=== PATIENT | female | born 1965 | race Hispanic/Latino ===

== ENCOUNTER 2021-03-13 14:41 | Emergency (ER) | payer OTHER ==
[2021-03-13 15:15] LABS: Urine Blood 3+ (Negative); Urine Glucose Negative (Negative); Urine Protein Trace (Negative); Urine Specific Gravity 1.025 (1.005-1.030)
[2021-03-13 16:00] LABS: ALT/SGPT 29 U/L (12-78); AST/SGOT 17 U/L (15-37); Albumin 3.5 g/dL (3.4-5.0); Alkaline Phosphatase 55 U/L (45-117); BUN Blood Urea Nitrogen 18 mg/dL (7-18); Bicarbonate 24 mmol/L (21-32); Bilirubin Direct < 0.1 mg/dL (0-0.2); Bilirubin Total 0.4 mg/dL (0.2-1.0); Glucose Level 94 mg/dL (74-106); Lipase 101 U/L (73-393); Protein, Total 6.8 g/dL (6.4-8.2); Sodium Level 146 mmol/L (136-145)
[2021-03-13] MEDS ORDERED: CEFTRIAXONE 1 GM/NS 50 ML 1 GM/50 ML BAG IV SCH (16:00)
[2021-03-13] MEDS ORDERED: KETOROLAC 30 MG/ML INJ ONE (16:08)
[2021-03-13] MEDS ORDERED: ONDANSETRON 4 MG/2 ML VIAL ONE (16:08)
[2021-03-13] MEDS ORDERED: NA CHLORIDE 0.9% 0 ML ONE (16:08)
[2021-03-13] MEDS ORDERED: MORPHINE 4 MG/ML SYR ONE (16:10)
[2021-03-13 16:57] LABS: Absolute Lymphocytes (CBC) 1.6 K/uL (0.7-4.9); Basophils % 0.1 % (0-1.3); Hematocrit 37.4 % (36.0-45.0); Lymphocytes % 22.7 % (15.3-44.8); MPV 9.3 fL (7.6-11.3); RBC Red Blood Cell Count 4.48 M/uL (3.86-4.86)
--- NOTE | 2021-03-13 17:25 | RAD REPORT ---
EXAM DESCRIPTION: CT - Stone Protocol - 03/13/2021 5:11 pm CLINICAL HISTORY: Flank pain. FLANK PAIN COMPARISON: No comparisons TECHNIQUE: Axial images were obtained without oral or IV contrast. Lack of contrast limits solid org an and vascular assessment. The [id number] spans the entirety of the system partially obscuring uppermost abdomen and lung bases. Coronal reformatted images were obtained and reviewed. All CT scans are performed using dose optimization technique as appropriate and may include automated exposure control or mA/KV adjustment according to patient size. FINDINGS: 3 mm nodule is present in the right lower lobe laterally. The lung bases are clear of acut e infiltrate. Imaged portions of the liver and spleen show no suspicious findings on non-contrast imaging. The panc reas and adrenal glands are normal. No pathologic lymphadenopathy in the abdomen or pelvis. 4 mm stone is present proximal right ureter at the level of the UPJ resulting in mild right hydroneph rosis. Additional small punctate stones are present in calices of both kidneys. No bowel obstruction, free air, free fluid or abscess. Normal appendix noted. No significant bony abnormality. IMPRESSION: 4 mm stone proximal right ureter at the level the right UPJ resulting in mild right hydr onephrosis. Smaller punctate stones are present in the calices of both kidneys.
--- NOTE | 2021-03-13 17:32 | EDPHYS ---
Physician Documentation [facility] Name: Sobeida Espinoza Age: 55 yrs Sex: Female : 1965 Arrival Date: 03/13/2021 Time: 14:50 Bed 8 Private MD: DERECK Physician Pipo Vail HPI: 03/13 17:25 This 55 yrs old Female presents to ER via EMS with complaints of chelsie Nausea/Vomiting, Flank Pain. 17:25 The patient presents to the emergency department with nausea, vomiting, that is chelsie continuous, abdominal pain, of the posterior aspect of right lateral abdomen, anterior aspect of right lateral abdomen and right lower quadrant. Onset: The symptoms/episode began/occurred just prior to arrival. Possible causes: kidney stone. 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 - Social history:: Smoking status: Patient denies any tobacco usage or history of. ROS: 17:26 Constitutional: Negative for fever, chills, and weight loss, Eyes: Negative for injury, chelsie pain, redness, and discharge, ENT: Negative for injury, pain, and discharge, Neck: Negative for injury, pain, and swelling, Cardiovascular: Negative for chest pain, palpitations, and edema, Respiratory: Negative for shortness of breath, cough, wheezing, and pleuritic chest pain, : Negative for injury, bleeding, discharge, and swelling, MS/Extremity: Negative for injury and deformity, Skin: Negative for injury, rash, and discoloration, Neuro: Negative for headache, weakness, numbness, tingling, and seizure, Psych: Negative for depression, anxiety, suicide ideation, homicidal ideation, and hallucinations, Allergy/Immunology: Negative for hives, rash, and allergies, Endocrine: Negative for neck swelling, polydipsia, polyuria, polyphagia, and marked weight changes, Hematologic/Lymphatic: Negative for swollen nodes, abnormal bleeding, and unusual bruising. 17:26 Abdomen/GI: Positive for abdominal pain, nausea and vomiting, nausea, vomiting, of the posterior aspect of right lateral abdomen, anterior aspect of right lateral abdomen and right lower quadrant. 17:26 Back: Positive for flank pain, on the right. Exam: 17:27 Constitutional: This is a well developed, well nourished patient who is awake, alert, chelsie and in no acute distress. Head/Face: Normocephalic, atraumatic. Eyes: Pupils equal round and reactive to light, extra-ocular motions intact. Lids and lashes normal. Conjunctiva and sclera are non-icteric and not injected. Cornea within normal limits. Periorbital areas with no swelling, redness, or edema. ENT: Nares patent. No nasal discharge, no septal abnormalities noted. Tympanic membranes are normal and external auditory canals are clear. Oropharynx with no redness, swelling, or masses, exudates, or evidence of obstruction, uvula midline. Mucous membranes moist. Neck: Trachea midline, no thyromegaly or masses palpated, and no cervical lymphadenopathy. Supple, full range of motion without nuchal rigidity, or vertebral point tenderness. No Meningismus. Chest/axilla: Normal chest wall appearance and motion. Nontender with no deformity. No lesions are appreciated. Cardiovascular: Regular rate and rhythm with a normal S1 and S2. No gallops, murmurs, or rubs. Normal PMI, no JVD. No pulse deficits. Respiratory: Lungs have equal breath sounds bilaterally, clear to auscultation and percussion. No rales, rhonchi or wheezes noted. No increased work of breathing, no retractions or nasal flaring. Abdomen/GI: Soft, non-tender, with normal bowel sounds. No distension or tympany. No guarding or rebound. No evidence of tenderness throughout. Back: No spinal tenderness. No costovertebral tenderness. Full range of motion. Skin: Warm, dry with normal turgor. Normal color with no rashes, no lesions, and no evidence of cellulitis. MS/ Extremity: Pulses equal, no cyanosis. Neurovascular intact. Full, normal range of motion. Neuro: Awake and alert, GCS 15, oriented to person, place, time, and situation. Cranial nerves II-XII grossly intact. Motor strength 5/5 in all extremities. Sensory grossly intact. Cerebellar exam normal. Normal gait. Psych: Awake, alert, with orientation to person, place and time. Behavior, mood, and affect are within normal limits. 17:27 Back: pain, that is very mild, of the right mid back, ROM is normal, normal spinal alignment noted, CVA tenderness, is absent, vertebral tenderness, is not appreciated, muscle spasm, is not present. Vital Signs: 14:50 BP 137 / 74; Pulse 66; Resp 18; Temp 98.2; Pulse Ox 99% ; Weight 71.67 kg; Height 5 ft. ll1 2 in. (157.48 cm); Pain 8/10; 16:52 BP 109 / 66; Pulse 62; Resp 15; Pulse Ox 99% on R/A; Pain 0/10; ss 14:50 Body Mass Index 28.90 (71.67 kg, 157.48 cm) ll1 MDM: 15:02 Patient medically screened. [facility] 03/13 15:14 Order name: Urine Dipstick-Ancillary; Complete Time: 17:04 [facility] 03/13 15:27 Order name: Basic Metabolic Panel; Complete Time: 17:04 [facility] 03/13 15:27 Order name: CBC with Diff; Complete Time: 17:04 [facility] 03/13 15:27 Order name: Hepatic Function; Complete Time: 17:04 [facility] 03/13 15:27 Order name: Lipase; Complete Time: 17:04 [facility] 03/13 15:27 Order name: Urine Culture [facility] 03/13 16:56 Order name: CT Stone Protocol; Complete Time: 17:29 [facility] 03/13 15:27 Order name: IV Saline Lock; Complete Time: 15:34 [facility] 03/13 15:27 Order name: Labs collected and sent; Complete Time: 15:34 [facility] Administered Medications: 15:48 Drug: NS 0.9% 1000 ml Route: IV; Rate: 1 bolus; Site: right antecubital; ss 17:53 Follow up: Response: Medication administered at discharge.; IV Status: Completed ss infusion; IV Intake: 1000ml 15:52 Drug: Zofran (Ondansetron) 4 mg Route: IVP; Site: right antecubital; ss 17:19 Follow up: Response: No adverse reaction; Nausea is decreased ss 15:54 Drug: Ketorolac 30 mg Route: IVP; Site: right antecubital; ss 17:20 Follow up: Response: No adverse reaction; Marked relief of symptoms; Pain is decreased ss 15:57 Drug: morphine 4 mg Route: IVP; Site: right antecubital; ss 17:19 Follow up: Response: No adverse reaction; Marked relief of symptoms; Pain is decreased ss 16:22 Drug: Rocephin (cefTRIAXone) 1 grams Route: IV; Rate: per protocol; Site: right ss antecubital; 17:20 Follow up: IV Status: Completed infusion; IV Intake: 50ml ss 17:26 Drug: Potassium Effervescent Tablet 25 mEq Route: PO; ss 17:33 Follow up: Response: No adverse reaction; Medication administered at discharge. ss 17:33 Not Given (Physician Discretion): NS 0.9% 1000 ml IV at 1 bolus Per protocol; 1000 mL ss bolus 17:45 Drug: Flomax (tamsulosin) 0.4 mg Route: PO; ss 17:54 Follow up: Response: No adverse reaction; Medication administered at discharge. ss Disposition Summary: 03/13/21 17:31 Discharge Ordered Location: Home chelsie Problem: new chelsie Symptoms: have improved chelsie Condition: Stable chelsie Diagnosis - Hydronephrosis with renal and ureteral calculous obstruction - 4 mm right proximal chelsie - Hypokalemia chelsie - Vomiting chelsie Followup: chelsie - With: Private Physician - When: 1 - 2 days - Reason: Recheck today's complaints, Continuance of care, Re-evaluation by your physician Followup: chelsie - With: Weston Rick MD - When: 2 - 3 days - Reason: Recheck today's complaints, Re-evaluation by your physician Discharge Instructions: - Discharge Summary Sheet chelsie - Potassium Content of Foods chelsie - Kidney Stones chelsie - Kidney Stones, [id number] chelsie - Hydronephrosis chelsie - Dietary Guidelines to Help Prevent Kidney Stones chelsie - Hypokalemia chelsie Forms: - Medication Reconciliation Form chelsie - Thank You Letter chelsie - Antibiotic Education chelsie - Prescription Opioid Use chelsie Prescriptions: - tamsulosin 0.4 mg Oral capsule - take 1 capsule by ORAL route once daily 1/2 hour following the same meal each chelsie day; 30 capsule; Refills: 0, Product Selection Permitted - Cipro 250 mg Oral Tablet - take 1 tablet by ORAL route every 12 hours; 14 tablet; Refills: 0, Product chelsie Selection Permitted - Zofran 4 mg Oral Tablet - take 1 tablet by ORAL route every 12 hours As needed; 20 tablet; Refills: 0, [facility] Product Selection Permitted - Tylenol-Codeine #3 300 mg-30 mg Oral - take 2 Tablespoon by ORAL route every 4-6 hours; 20 Tablespoon; Refills: 0, chelsie Product Selection Permitted Signatures: Dispatcher [employer] Pipo Munguia MD MD cha Smirch, Shelby, RN RN Lisha Asher RN RN ll1
--- NOTE | 2021-03-13 17:32 | ER ---
Nurse's Notes [facility] Name: Sobeida Espinoza Age: 55 yrs Sex: Female : 1965 Arrival Date: 03/13/2021 Time: 14:50 Bed 8 Private MD: Diagnosis: Hydronephrosis with renal and ureteral calculous obstruction-4 mm right proximal ;Hypokalemia;Vomiting Presentation: 03/13 14:50 Chief complaint: Patient states: Out fishing 1 hour [employer]. Started having R flank pain ll1 with N/V. No fever. Coronavirus screen: Vaccine status: Patient reports receiving the 2nd dose of the covid vaccine. Client denies travel out of the [place] in the last 14 days. At this time, the client does not indicate any symptoms associated with coronavirus-19. Ebola Screen: Patient denies travel to an Ebola-affected area in the 21 days before illness onset. Initial Sepsis Screen: Does the patient meet any 2 criteria? No. Patient's initial sepsis screen is negative. Does the patient have a suspected source of infection? No. Patient's initial sepsis screen is negative. Risk Assessment: Do you want to hurt yourself or someone else? Patient reports no desire to harm self or others. Onset of symptoms was March 13, 2021. 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 - Social history:: Smoking status: Patient denies any tobacco usage or history of. Screenin:53 Abuse screen: Denies threats or abuse. Nutritional screening: No deficits noted. ll1 Tuberculosis screening: No symptoms or risk factors identified. 16:53 Fall Risk None identified. ss Assessment: 15:00 General: Appears in no apparent distress. comfortable, Behavior is calm, cooperative. ss Pain: Complains of pain in R flank Pain radiates to right lower quadrant Pain currently is 8 out of 10 on a pain scale. Quality of pain is described as sharp, Pain began suddenly. Neuro: Level of Consciousness is awake, alert, obeys commands, Oriented to person, place, time, situation. Cardiovascular: Capillary refill < 3 seconds is brisk in bilateral fingers Patient's skin is warm and dry. Respiratory: Airway is patent Respiratory effort is even, unlabored, Respiratory pattern is regular, symmetrical. GI: Abdomen is non-distended, Reports nausea. : Denies burning with urination, urinary frequency. EENT: Oral mucosa is moist. Throat is clear. Derm: Skin is intact, is healthy with good turgor, Skin is dry, Skin is pink, warm \T\ dry. normal. Musculoskeletal: Circulation, motion, and sensation intact. Range of motion: intact in all extremities, Swelling absent. 16:53 Reassessment: Patient appears in no apparent distress at this time. Patient and/or ss family updated on plan of care and expected duration. Pain level reassessed. Patient is alert, oriented x 3, equal unlabored respirations, skin warm/dry/pink. Patient states feeling better. Patient states symptoms have improved. Pain: Denies pain. 17:20 Reassessment: awaiting Ct results Patient denies pain at this time. Patient states ss feeling better. Patient states symptoms have improved. Vital Signs: 14:50 BP 137 / 74; Pulse 66; Resp 18; Temp 98.2; Pulse Ox 99% ; Weight 71.67 kg; Height 5 ft. ll1 2 in. (157.48 cm); Pain 8/10; 16:52 BP 109 / 66; Pulse 62; Resp 15; Pulse Ox 99% on R/A; Pain 0/10; ss 14:50 Body Mass Index 28.90 (71.67 kg, 157.48 cm) ll1 ED Course: 14:50 Patient arrived in ED. ll1 14:52 Triage completed. ll1 14:53 Arm band placed on Patient placed in an exam room, on a stretcher. ll1 14:53 Patient has correct armband on for positive identification. Bed in low position. Call [facility] light in reach. Side rails up X 1. Pulse ox on. NIBP on. 14:53 Patient has correct armband on for positive identification. Placed in gown. Bed in low mh5 position. Call light in reach. Side rails up X 1. Warm blanket given. Pulse ox on. NIBP on. 14:53 Initial lab(s) drawn, by me, sent to lab. Maintain EMS IV. Dressing intact. Good blood mh5 return noted. Site clean \T\ dry. 15:02 Pipo Vail MD is Attending Physician. chelsie 15:34 Urine Culture Sent. mh5 15:35 Basic Metabolic Panel Sent. mh5 15:35 CBC with Diff Sent. mh5 15:35 Hepatic Function Sent. mh5 15:35 Lipase Sent. mh5 15:35 Urine collected: clean catch specimen, clear. mh5 15:56 Annie Sinclair, BETY is Primary Nurse. ss 17:10 CT Stone Protocol In Process Unspecified. EDMS 17:30 Weston Rick MD is Referral Physician. chelsie 17:54 No provider procedures requiring assistance completed. IV discontinued, intact, ss bleeding controlled, No redness/swelling at site. Pressure dressing applied. Administered Medications: 15:48 Drug: NS 0.9% 1000 ml Route: IV; Rate: 1 bolus; Site: right antecubital; ss 17:53 Follow up: Response: Medication administered at discharge.; IV Status: Completed ss infusion; IV Intake: 1000ml 15:52 Drug: Zofran (Ondansetron) 4 mg Route: IVP; Site: right antecubital; ss 17:19 Follow up: Response: No adverse reaction; Nausea is decreased ss 15:54 Drug: Ketorolac 30 mg Route: IVP; Site: right antecubital; ss 17:20 Follow up: Response: No adverse reaction; Marked relief of symptoms; Pain is decreased ss 15:57 Drug: morphine 4 mg Route: IVP; Site: right antecubital; ss 17:19 Follow up: Response: No adverse reaction; Marked relief of symptoms; Pain is decreased ss 16:22 Drug: Rocephin (cefTRIAXone) 1 grams Route: IV; Rate: per protocol; Site: right ss antecubital; 17:20 Follow up: IV Status: Completed infusion; IV Intake: 50ml ss 17:26 Drug: Potassium Effervescent Tablet 25 mEq Route: PO; ss 17:33 Follow up: Response: No adverse reaction; Medication administered at discharge. ss 17:33 Not Given (Physician Discretion): NS 0.9% 1000 ml IV at 1 bolus Per protocol; 1000 mL ss bolus 17:45 Drug: Flomax (tamsulosin) 0.4 mg Route: PO; ss 17:54 Follow up: Response: No adverse reaction; Medication administered at discharge. ss Intake: 17:20 IV: 50ml; Total: 50ml. ss 17:53 IV: 1000ml; Total: 1050ml. ss Outcome: 17:31 Discharge ordered by . chelsie 17:54 Discharged to home ambulatory. ss 17:54 Condition: improved 17:54 Discharge instructions given to patient, Instructed on discharge instructions, follow up and referral plans. medication usage, Demonstrated understanding of instructions, follow-up care, medications, Prescriptions given X 4. 17:54 Patient left the ED. ss Signatures: Dispatcher [employer] EDPipo Pitts MD MD cha Smirch, Shelby, RN RN Liz Obrien [facility] Lisha Santos RN RN ll1
[2021-03-13] MEDS ORDERED: POTASSIUM 25 MEQ EFFERV TAB ONE (17:49)
[2021-03-13] MEDS ORDERED: NA CHLORIDE 0.9% 1,000 ML ONE (17:49)
[2021-03-13 18:03] VITALS: TEMP 98.2; O2SAT 99
[2021-03-13 18:05] VITALS: BP 109/66
[2021-03-13] MEDS ORDERED: TAMSULOSIN 0.4 MG SR CAP ONE (18:05)
== END 2021-03-13 17:54 | disposition home or self-care (01) ==
LOC: ER 14:41
DX: N13.2 Hydronephrosis with renal and ureteral calculous obstruction (principal); E87.6 Hypokalemia
CPT/HCPCS: 96365; 96361; 87088; 85025; 87086; 80048; 36415; 80076; 81003; 83690; 76377; 74176; 96375; 99284; J7030; J0696; J2405